=== PATIENT | female | born 1995 | race African-American/Black ===

== ENCOUNTER 2017-11-29 13:49 | Emergency (ER) | payer OTHER ==
[~2017-11-29] VITALS: Ht 165.1 cm; Wt 65.5 kg
[~2017-11-29 13:49] MED LIST: PROM25SU8 PO; Z.0.NO CURRENT MEDS
[2017-11-29 13:52] VITALS: BP 116/60; PULSE 83; RESP 18; TEMP 98.6; O2SAT 97
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
[2017-11-29] MEDS ORDERED: DICL75TA PO (14:59)
== END 2017-11-29 15:22 | disposition home or self-care (01) ==
LOC: NEPK 13:49
DX: S80.11XA Contusion of right lower leg, initial encounter (principal); V49.50XA Passenger injured in collision with unspecified motor vehicles in traffic accident, initial encounter
CPT/HCPCS: 73590; 99283